=== PATIENT | female | born 1980 | race Caucasian/White ===

== ENCOUNTER 2017-09-17 10:35 | Day surgery (SDC) | payer BC ==
[2017-09-15 11:06] VITALS: BMI 27.3
[~2017-09-17 10:35] MED LIST: LACTATED RINGERS 1,000 ML IV SCH
[2017-09-17 11:00] VITALS: TEMP 97.8
[2017-09-17] MEDS ORDERED: LIDOCAINE 1% 20 ML VIAL (10MG/ML) FOR IV START INTRADERMA ONE (11:13)
[2017-09-17] MEDS ORDERED: MIDAZOLAM 2 MG/2 ML VIAL ONE (11:46)
[2017-09-17] MEDS ORDERED: fentaNYL (PF) 50 MCG/ML 2 ML AMP ONE (11:46)
[2017-09-17] MEDS ORDERED: GLYCOPYRROLATE 0.2 MG/ML 2 ML VIAL ONE (11:46)
[2017-09-17] MEDS ORDERED: PROPOFOL 10 MG/ML 20 ML VIAL IV ONE (11:46)
[2017-09-17] MEDS ORDERED: LIDOCAINE 1% INJ 10MG/ML (20 ML MDV) ONE (11:46)
--- NOTE | 2017-09-17 12:05 | P.PCN ---
Date of Procedure: 09/17/17 Procedure(s) Performed: Brief history: Patient is a pleasant 37-year-old white female, scheduled for an elective upper endoscopy as well as colonoscopy as a part of evaluation of long-standing history of GERD and intermittent rectal bleeding. Procedure performed: Esophagogastroduodenoscopy with biopsy Colonoscopy Preoperative diagnosis: Long standing history of GERD Intermittent rectal bleeding Anesthesia: MAC Procedure: After informed consent was obtained from the patient was brought into the endoscopy unit and IV sedation was administered by anesthesia under continuous monitoring. Initially upper endoscopy was done. The Olympus GF 160 video endoscope was inserted inserted into the mouth and esophagus intubated without any difficulty and was gradually advanced into the stomach and duodenum and carefully examined. The bulb and second part of the duodenum appeared normal. The scope was then withdrawn into the stomach adequately insufflated with air and upon careful examination the antrum had mild gastritis and biopsies were done from this area. The body, cardia and fundus appeared normal. The scope was then withdrawn into the esophagus. The GE junction was located at 40 cm to the incisors. It appeared regular with no erythema erosions or ulcerations. Rest of the esophagus appeared normal. Patient tolerated the procedure well. At this time the patient continued to remain sedation. Initial digital rectal examination was normal. Olympus CF 160 video colonoscope was then inserted into the rectum and gradually advanced to the cecum without any difficulty. Careful examination was performed as the scope was gradually being withdrawn. The prep was excellent. The cecum, ascending colon, transverse colon, descending colon, sigmoid colon and rectum appeared normal. Retroflexion was performed in the rectum and small internal hemorrhoids were noted. Patient tolerated the procedure well. Impression: 1. Upper endoscopy revealed mild antral gastritis but no evidence of esophagitis or peptic ulcer disease 2. Colonoscopy revealed normal-appearing colon from rectum to cecum with no evidence of colitis or colorectal neoplasia. Small internal hemorrhoids seen. Recommendations: Findings of this examination were discussed with the patient as well as her family. She was advised to follow with the biopsy results. She was advised to be a high-fiber diet and take fiber supplements on a regular basis and avoid straining and constipation.
[2017-09-17 12:30] VITALS: BP 113/78; PULSE 83; RESP 16
== END 2017-09-17 12:36 | disposition home or self-care (01) ==
LOC: ORWHC2ENDO 10:35
PROVIDERS: ATTEND Internal Medicine Gastroenterology
DX: K29.70 Gastritis, unspecified, without bleeding (principal); K64.8 Other hemorrhoids; F32.9 Major depressive disorder, single episode, unspecified; Z79.899 Other long term (current) drug therapy
CPT/HCPCS: 81025; 88305; 45378; 43239; J2250; J2001; J3010; J2704

== ENCOUNTER 2019-04-27 15:12 | Emergency (ER) | payer BC ==
[2019-04-27 15:21] VITALS: BP 135/90; PULSE 84; RESP 18; TEMP 97.8
--- NOTE | 2019-04-27 15:43 | ED ---
General Adult HPI - General Chief complaint: Head Injury Stated complaint: Hit head friday not feeling good Time Seen by Provider: 04/27/19 15:24 Source: patient, RN notes reviewed, old records reviewed Mode of arrival: ambulatory Limitations: no limitations - History of Present Illness Initial comments: 39-year-old female patient presents to ED for evaluation of head injury. Patient reports that Friday night she was out with friends, drinking, states that when she went to open the door of condo she slipped, fell backwards hitting her head on the ground. Denies loss of consciousness. Denies use of blood thinners. Patient reports in the day since she has had waxing and waning headaches, nausea. Initially presented to urgent care and they recommended she come here for a CAT scan. Patient states that she cannot be . Denies other complaints. Systemic: Pt denies fatigue, fever/chills, rash. Pt denies weakness, night sweats, weight loss. Neuro: Pt denies visual disturbances, syncope or pre-syncope. HEENT: Pt denies ocular discharge or irritation, otalgia, rhinorrhea, pharyngitis or notable lymphadenopathy. Cardiopulmonary: Pt denies chest pain, SOB, heart palpitations, dyspnea on exertion. Abdominal/GI: Pt denies abdominal pain, n/v/d. : Pt denies dysuria, burning w/ urination, frequency/urgency. Denies new onset urinary or bowel incontinence. MSK: Pt denies myalgia, loss of strength or function in extremities. Neuro: Pt denies new onset weakness, paresthesias. - Related Data Home Medications Medication Instructions Recorded Confirmed buPROPion HCL [Wellbutrin SR] 150 mg PO HS 09/15/17 09/15/17 Allergies Allergy/AdvReac Type Severity Reaction Status Date / Time No Known Allergies Allergy Verified 04/27/19 15:21 Review of Systems ROS Statement: Those systems with pertinent positive or pertinent negative responses have been documented in the HPI. ROS Other: All systems not noted in ROS Statement are negative. Past Medical History Past Medical History: No Reported History Additional Past Medical History / Comment(s): HAS BEEN HAVING EPISODES OF BLOOD IN STOOL AND SOME SOB History of Any Multi-Drug Resistant Organisms: None Reported Past Surgical History: No Surgical Hx Reported Past Anesthesia/Blood Transfusion Reactions: No Reported Reaction Past Psychological History: Depression Smoking Status: Never smoker Past Alcohol Use History: Occasional Past Drug Use History: None Reported - Past Family History Mother Family Medical History: No Reported History General Exam - General Exam Comments Initial Comments: Constitutional: NAD, AOX3, Pt has pleasant affect. HEENT: NC/AT, trachea midline, neck supple, no lymphadenopathy. Posterior pharynx non erythematous, without exudates. External ears appear normal, without discharge. Mucous membranes moist. Eyes PERRLA, EOM intact. There is no scleral icterus. No pallor noted. Cardiopulmonary: RRR, no murmurs, rubs or gallops, no JVD noted. Lungs CTAB in anterior and posterior powell. No peripheral edema. Abdominal exam: Abdomen soft and non-distended. Abdomen non-tender to palpation in all 4 quadrants. Bowel sounds active in LLQ. No hepatosplenomegaly. No ecchymosis Neuro: CN II-XII grossly intact. No nuchal rigidity. No raccon eyes, no bolton sign, no hemotympanum. No cervical spinal tenderness. MSK: No posterior calf tenderness bilaterally, homans sign negative bilaterally. Posterior tibialis and radial pulse +2 bilaterally. Sensation intact in upper and lower extremities. Full active ROM in upper and lower extremities, 5/5 stregnth. Limitations: no limitations Course Vital Signs 04/27/19 15:19 Temperature 97.8 F Pulse Rate 84 Respiratory 18 Rate Blood Pressure 135/90 O2 Sat by Pulse 100 Oximetry Medical Decision Making - Medical Decision Making 39-year-old female patient presents to ED for evaluation of head injury. Patient reports that Friday night she was out with friends, drinking, states that when she went to open the door of [employer] she slipped, fell backwards hitting her head on the ground. Denies loss of consciousness. Denies use of blood thinners. Patient reports in the day since she has had waxing and waning headaches, nausea. Initially presented to urgent care and they recommended she come here for a CAT scan. Patient states that she cannot be . Denies other complaints. Patient also in stable, nonfebrile. Physical exam did not acute pathology. Neurologic exam within normal limits. CT brain these findings were acute process. Patient diagnosed with concussion. Patient will discharge, follow-up with Dr. Phillips continued evaluation. Case discussed with Dr. Tavera. Disposition Clinical Impression: Concussion Disposition: HOME SELF-CARE Condition: Stable Instructions (If sedation given, give patient instructions): Concussion (ED) Additional Instructions: Patient to adhere to previously discussed treatment plan and will take med ication(s) as directed. Patient to follow up with PCP in 1-2 days. Patient to return to ED if symptoms do not improve. Follow up with primary care provider tomorrow. Return to ED if condition worse ns. Is patient prescribed a controlled substance at d/c from ED?: No Referrals: Tez Veloz DO [Primary Care Provider] - 1-2 days
--- NOTE | 2019-04-27 16:10 | CT ---
EXAMINATION TYPE: CT brain wendy connor DATE OF EXAM: 04/27/2019 COMPARISON: None HISTORY: Fall, LOC (Friday night) CT DLP: 1292.[address] Brain: Unenhanced CT of the brain was performed. The ventricles, basal cisterns and sulci overlying the cerebral convexities demonstrate a normal appe arance. There is no evidence for intracranial hemorrhage or sulcal effacement. No mass effects are seen. If symptoms persist consider MRI. Osseous calvarium is intact. IMPRESSION: No acute intracranial process CT Cervical Spine: Unenhanced CT of the cervical spine was performed with bone and soft tissue window settings submitted . Coronal and sagittal reconstruction is obtained. There is normal alignment and prevertebral soft tissues. I do not see evidence for fracture or sublu xation. No significant degenerative changes are present. The lung apices are clear. IMPRESSION: No evidence for acute fracture or subluxation of the cervical spine.
== END 2019-04-27 16:25 | disposition home or self-care (01) ==
LOC: EC 15:12
DX: S06.0X0A Concussion without loss of consciousness, initial encounter (principal); F32.9 Major depressive disorder, single episode, unspecified; Z79.899 Other long term (current) drug therapy; W01.0XXA Fall on same level from slipping, tripping and stumbling without subsequent striking against object, initial encounter; Y93.89 Activity, other specified
CPT/HCPCS: 70450; 72125; 99284

== ENCOUNTER → 2020-04-04 | Outpatient (CLI) | payer BC ==
--- NOTE | 2020-04-04 15:44 | XR ---
EXAMINATION TYPE: XR cervical spine comp DATE OF EXAM: 04/04/2020 TECHNIQUE: Frontal, lateral, oblique, swimmers, and open mouth view of the cervical spine are obtaine d. HISTORY: M54.2 neck pain. Posterior lump per patient. COMPARISON: CT cervical spine April 27, 2019 FINDINGS: The cervical spine is visualized in its entirety from C1 thru the top of T1 level, it is s table in alignment without evidence of acute fracture or dislocation. The pre-vertebral soft tissue appears within normal limits. The C1-C2 articulation is within normal limits on the open mouth view. Vertebral body heights and disc space heights are maintained. The oblique images are within normal limits. Overlying soft tissue is unremarkable. IMPRESSION: As above. No significant change from prior.
== END | disposition home or self-care (01) ==
LOC: RADXRMAIN 15:19
PROVIDERS: ATTEND Family Medicine
DX: M54.2 Cervicalgia (principal)
CPT/HCPCS: 72050

== ENCOUNTER → 2022-01-01 | Outpatient (CLI) | payer BC ==
--- NOTE | 2022-01-01 12:30 | XR ---
EXAMINATION TYPE: XR lumbar spine 3V, XR sacrum coccyx 3 views, XR AP view pelvis and 2 views each hip DATE OF EXAM: 01/01/2022 Comparison: 10/20/2014 Clinical History: 41-year-old female Lower Back Pain M54.50 Findings: Lumbar spine: Slight leftward truncal shift. 5 lumbar type vertebral bodies. Facet arthropathy lower lumbar spine. Mild degenerative disc space narrowing L5-S1. Vertebral body heights are preserved and alignment is m aintained. Sacrum coccyx: SI joints appear symmetric and intact. Smooth delineation to the arcuate lines of the sacrum. No disp laced or angulated sacral or coccygeal fracture seen. Pelvis and hips: A small bilateral os acetabuli are small degenerative labral ossification superior aspect of both patt tabula. Small anterior femoral head neck junction osseous excrescences on both sides. No acute fractu re, subluxation, or dislocation. IMPRESSION: 1. Lumbar spine: Some facet degenerative change in the lower lumbar spine along with mild degenerativ e disc disease at L5-S1. Some leftward truncal shift may be positional or due to muscle spasm. No giselle tebral compression collapse or malalignment. 2. Sacrum and coccyx: No angulated or displaced tailbone fracture seen. 3. Pelvis and hips: Small osseous excrescences anterior aspect of the femoral head neck junctions. Al so, either small os acetabuli or some degenerative labral ossification on both sides. Correlate for a ny chronic symptoms of femoral acetabular impingement syndrome. Consider outpatient orthopedic referr al if indicated.
== END | disposition home or self-care (01) ==
LOC: RADXRMAIN 11:49
PROVIDERS: ATTEND Family Medicine
DX: M51.37 Other intervertebral disc degeneration, lumbosacral region (principal)
CPT/HCPCS: 72100; 72220; 73521

== ENCOUNTER → 2022-06-28 | Outpatient (CLI) | payer BC ==
--- NOTE | 2022-06-29 04:41 | MR ---
EXAMINATION TYPE: MR lumbar spine wo con DATE OF EXAM: 06/28/2022 COMPARISON: None HISTORY: Low back pain that radiates down right leg. Multiplanar multiecho imaging of the lumbar spine performed without contrast. The lumbar vertebrae have normal alignment. There is mild decreased signal and narrowing at the L5-S1 disc. There is large posterior disc herniation into the spinal canal on the right side at L5-S1. The re is some lateral recess stenosis on the right side at L5-S1. The lumbar nerve roots appear fairly n ormal. No lumbar compression fracture. Posterior elements are intact. Sacroiliac joints are intact. IMPRESSION: Large posterior 14 x 8 mm right-sided L5-S1 lumbar disc herniation with impingement on the lateral re cess and correlates with the patient's symptoms of right leg pain.
== END | disposition home or self-care (01) ==
LOC: RADMRIMAIN 18:08
PROVIDERS: ATTEND Orthopaedic Surgery
DX: M51.17 Intervertebral disc disorders with radiculopathy, lumbosacral region (principal)
CPT/HCPCS: 72148

== ENCOUNTER 2022-07-23 10:46 | Emergency (ER) | payer BC ==
[2022-07-23 10:56] VITALS: BP 132/91; PULSE 105; RESP 17; TEMP 98
[2022-07-23] MEDS ORDERED: methylPREDNISolone SOD SUCCI 125 MG/2 ML VIAL IM ONE (11:36)
[2022-07-23] MEDS ORDERED: ACET/COD 300 MG/30 MG STARTER PACK 6 TAB BTL PO STA (11:36)
--- NOTE | 2022-07-23 11:37 | ED ---
Back Pain HPI - General Chief Complaint: Back Pain/Injury Stated Complaint: Sciatica Pain Time Seen by Provider: 07/23/22 11:05 Source: patient, RN notes reviewed Mode of arrival: ambulatory Limitations: no limitations - History of Present Illness Initial Comments: 42-year-old female presents emergency Department with chief complaint of low- back pain, right leg pain. Patient states she has known L5-S1 disc herniation scheduled for micro discectomy dr jonathan Lopez . Patient states last few days she said down and woke up with pain in her right leg gets worse with ambulation states her leg goes numb. Patient states she said no bowel, bladder incontinence or retention. Patient states that she called office in which they advised her to come emergency department. Patient states that symptoms have not worsened but are not improving. - Related Data Home Medications Medication Instructions Recorded Confirmed buPROPion HCL [Wellbutrin SR] 150 mg PO HS 09/15/17 04/27/19 Previous Rx's Medication Instructions Recorded Ibuprofen [Motrin] 600 mg PO Q8HR PRN #20 tab 07/23/22 predniSONE 50 mg PO DAILY #5 tab 07/23/22 Allergies Allergy/AdvReac Type Severity Reaction Status Date / Time No Known Allergies Allergy Verified 07/23/22 10:56 Review of Systems ROS Statement: Those systems with pertinent positive or pertinent negative responses have been documented in the HPI. ROS Other: All systems not noted in ROS Statement are negative. Past Medical History Past Medical History: No Reported History Additional Past Medical History / Comment(s): back pain History of Any Multi-Drug Resistant Organisms: None Reported Past Surgical History: No Surgical Hx Reported Past Anesthesia/Blood Transfusion Reactions: No Reported Reaction Past Psychological History: Depression Past Alcohol Use History: None Reported Past Drug Use History: None Reported - Past Family History Mother Family Medical History: No Reported History General Exam Limitations: no limitations General appearance: alert, in no apparent distress Head exam: Present: atraumatic, normocephalic, normal inspection Eye exam: Present: normal appearance, PERRL, EOMI. Absent: scleral icterus, conjunctival injection, periorbital swelling ENT exam: Present: normal exam, normal oropharynx, mucous membranes moist Neck exam: Present: normal inspection, full ROM. Absent: tenderness, meningismus, lymphadenopathy Respiratory exam: Present: normal lung sounds bilaterally. Absent: respiratory distress, wheezes, rales, rhonchi, stridor Cardiovascular Exam: Present: regular rate, normal rhythm, normal heart sounds. Absent: systolic murmur, diastolic murmur, rubs, gallop, clicks GI/Abdominal exam: Present: soft, normal bowel sounds. Absent: distended, tenderness, guarding, rebound, rigid Extremities exam: Present: other (Lower extremity strength equal bilaterally neurovascular intact equal warmth) Back exam: Present: full ROM, tenderness, paraspinal tenderness. Absent: vertebral tenderness Neurological exam: Present: alert, reflexes normal. Absent: motor sensory deficit Skin exam: Present: warm, dry, intact, normal color. Absent: rash Course Vital Signs 07/23/22 10:54 Temperature 98.0 F Pulse Rate 105 H Respiratory 17 Rate Blood Pressure 132/91 O2 Sat by Pulse 100 Oximetry Medical Decision Making - Medical Decision Making Patient had recent MRI does not require any further imaging. I did discuss case with Kimberly Angeles recommends steroids, pain control and follow-up. Return parameters were discussed. Disposition Clinical Impression: Lumbar radiculopathy, acute Disposition: HOME SELF-CARE Condition: Stable Instructions (If sedation given, give patient instructions): Lumbar Radiculopathy (ED), Lumbar Disc Herniation (ED) Additional Instructions: Please return to the Emergency Department if symptoms worsen or any other concerns. Prescriptions: Ibuprofen [Motrin] 600 mg PO Q8HR PRN #20 tab PRN Reason: Pain predniSONE 50 mg PO DAILY #5 tab Is patient prescribed a controlled substance at d/c from ED?: No Referrals: Tez Veloz DO [Primary Care Provider] - 1-2 days Vasiliy Mcneil DO [Doctor of Osteopathic Medicine] - 1-2 days Time of Disposition: 11:33
== END 2022-07-23 11:56 | disposition home or self-care (01) ==
LOC: EC 10:46
DX: M54.16 Radiculopathy, lumbar region (principal); F32.A Depression, unspecified
CPT/HCPCS: 99283; 96372; J2930

== ENCOUNTER → 2022-08-03 | Outpatient (CLI) | payer BC | END | disposition home or self-care (01) | LOC: LABPAT 11:01 | PROVIDERS: ATTEND Orthopaedic Surgery | DX: Z01.812 Encounter for preprocedural laboratory examination (principal); Z22.322 Carrier or suspected carrier of Methicillin resistant Staphylococcus aureus; M51.26 Other intervertebral disc displacement, lumbar region | CPT/HCPCS: 87070 ==

== ENCOUNTER 2022-08-09 06:22 | Day surgery (SDC) | payer BC ==
[~2022-08-09 06:22] MED LIST changes: +ACETAMINOPHEN TAB 500 MG TAB PO PRN; +GABAPENTIN 300 MG CAP PO PRN; -LACTATED RINGERS 1,000 ML IV SCH; +ONDANSETRON 4 MG/2 ML VIAL IVP PRN; +TRANEXAMIC ACID IN NACL,ISO-OS 1,000 MG in SALINE 1 100ML.BAG IVPB PRN
[2022-08-09] MEDS ORDERED: MIDAZOLAM 2 MG/2 ML VIAL IV PRN (06:36)
[2022-08-09] MEDS ORDERED: LACTATED RINGERS 1,000 ML IV SCH (06:36)
--- NOTE | 2022-08-09 06:56 | P.HPOR ---
History of Present Illness H&P Date: 08/09/22 .D:Date: 07/03/22 : 10:51am .T:Title: [facility] Date of :[birth year] Age: 42 year Height: 5'7" Weight: 165 lbs BP:125/78 BMI: 25.84 kg/m2 Occupation: R.N VAS: 8 CHIEF COMPLAINT: rechecklow back pain DOI: Chronic DOS: None Duration of current treatment regiment: >3 months HISTORY: Xrays No new xrays taken in office Trauma or injury No Work-Related No Pain description aching, burning, sharp. Location posterior Patient notes that their pain radiates to right lower extremity Activity Modification yes Hand Dominance right TREATMENTS COMPLETED: 6 weeks of PT completed? Month and Year of last PT date? No Physician directed home exercise completed? yes Patient has trialed the physician directed home exercise program for greater than 3 months without relief of their symptoms. Medications yes List: Ibuprofen, Oral steroids without relief Toradol 10mg without relief Flexeril 10mg without relief Gabapentin 300mg without relief Alternative interventions Chiropractic: yes, exacerbated symptoms. Massage therapy: yes No R.I.C.E: yes heat/ice without relief Brace: No Injections Yes right hip GTB through Dr. Houston How many? 1 Did they help? No RFA: No SUBJECTIVE: Ms. Shah returns to the office for a recheck of their low back pain and to review her MRI obtained after her last appointment. Patient reports no improvements to her symptoms since the time of the last appointment. The patient continues to complain of low back pain radiating into the right lower extremity that is significantly impacting her daily functionality. Furthermore the patient reports continued dermatomal deficits about the L5-S1 distribution hamzah tis imp acting her gait. Overall the patient has seen a progressive increase in symptoms since their onset. Ms. Shah symptoms are exacerbated with any standing, ambulation, or flexion/extension of the low back, due to this they notes that it is increasingly difficult for Ms. Shah to complete many of their daily tasks. Patient is having severe sleep disturbances as well due to their ongoing pain and associated symptoms. Regarding treatments, the patient has previously trialed all abovementioned treatment modalities without relief of her symptoms. Patient denies trialing any other modalities at this time. Otherwise the patient denies any f/c/sob/cp, no bladder or bowel retention/incontinence, no perineal numbness/tingling, and ambulates independently. HPI: Ms. Shah presents to the office for an evaluation of their low back pain. Patient reports a increasing, sharp, burning lumbar pain ongoing since 12/2021 with no known injury or trauma to indicate an exact onset of their symptoms. In addition to their lumbar pain, they do report that it radiates into the right lower extremity, associated with numbness and tingling through L5-S1 dermatomal distribution. Overall the patient has seen a progressive increase in symptoms since their onset. Ms. Shah symptoms are exacerbated with prolonged standing, ambulation, and high impact movements like walking up and down stairs, due to this they notes that it is increasingly difficult for Ms. Shah to complete many of their daily tasks. Patient is having severe sleep disturbances as well due to their ongoing pain and associated symptoms. Regarding treatments, the patient has previously trialed all abovementioned treatment modalities without relief. Otherwise the patient denies any f/c/sob/cp, no incision concerns, no bladder or bowel retention/incontinence, no perineal numbness/tingling, and ambulates independently. The patients' past social, medical, family, surgical history, as well as review of systems, have been reviewed. Please refer to the Neurosurgery History and Physical form that has been scanned in to our electronic medical record system. 14 points review of systems completed and as stated in HPI, all other systems reviewed are negative. Social History: Reviewed, see appropriate section of the chart for details. P3 Social History: Smoking: never a smoker P3 Alcohol: socially drinks alcohol P3 Family History: Reviewed, see appropriate section of the chart for details. P2 Past Medical History: Reviewed, see appropriate section of the chart for details. P1 Current Medications: Rx: ibuprofen 800 mg tablet Ref: 0 Rx: multivitamin Ref: 0 P1 PHYSICAL EXAMINATION: General: Awake, alert, appropriate for age, in no acute distress. HEENT: No unusual neck masses around region of lateral neck triangle, thyroid, supraclavicular groove Extremities: Skin warm and dry without acute lesions, coloration, temperature, skin intact, no tenderness or erythema Integument: Hairy patches: ABSENT Dorsal skin dimples: ABSENT Cafe au lait spots: ABSENT Surgical incisions: NONE Palpation: Please see Pain drawing on Intake sheet for further detail. Midline spinal tenderness: No E6 Cervical Tenderness: No E6 Paralumbar tenderness: No E6 Parathoracic tenderness: No E6 Buttocks tenderness: No E6 Sacroiliac Tenderness: No POSTURAL and MUSCULO-SKELETAL EVALUATION: Coronal Balance: NEUTRAL Recumbent testing: Patient is able to lay flat on back Sagittal Balance: NEUTRAL Shoulder Profile: LEVEL Pelvic Girdle: LEVEL Neck ROM: UNRESTRICTED Lumbar ROM: RESTRICTED Shoulder ROM: Symmetrical Hip ROM: Symmetrical Knee ROM: Symmetrical Hands: Normal appearance, symmetrical Feet: Normal appearance, Symmetrical VASCULAR STATUS : LEFT RIGHT Wrist Pulses INTACT INTACT Pedal Pulses (Dors. pedis & post.tibialis) INTACT INTACT Color NORMAL NORMAL Edema Absent Absent NEUROLOGIC EXAMINATION: Mental Status:Awake and alert, fully oriented, with normal attention, concentration and memory, and fluent, appropriate speech. Cranial Nerves: I: Olfactory not tested. II: Visual acuity normal, no visual field deficit noted with confrontation. III,IV: Normal pupillary reflexes & intact extraocular movements without nystagmus. V,: Intact symmetrical facial sensation. VII: Intact symmetrical facial motor movement VIII: Hearing intact. IX,X: Intact gag, swallow, & normal voice. XI: Sternocleidomastoid, trapezius function intact. XII: Tongue midline with normal movements. L'hermitte's Sign: Negative / absent Spurling'Sign: Absent bilaterally. Cubital percussion test: Absent bilaterally. Keys-Tinel sign - Carpal region: Absent bilaterally. Straight Leg Raising: positive right side Crossed straight leg raise: positive right side O8 MOTOR EXAM (0-5/5, N/T Muscle appearance: Symmetrical, without signs of atrophy or dystrophy UPPER EXTREMITY RIGHT LEFT Shoulder Abduction 5/5 5/5 Biceps 5/5 5/5 Triceps 5/5 5/5 Wrist Extension 5/5 5/5 Hand Intrinsics 5/5 5/5 Chief Telephone Operator 5/5 5/5 Hand and finger dexterity intact bilaterally? yes LOWER EXTREMITY RIGHT LEFT Hip Flexion 5/5 5/5 Knee Extension 5/5 5/5 Knee Flexion 5/5 5/5 Dorsiflexion 4-/5 5/5 Plantarflexion 4-/5 5/5 EHL 5/5 5/5 FHL 5/5 5/5 Toe heel walk / heel-toe walk intact while maintaining satisfactory balance? No Squatting/straightening w/o assistance to a min of 60 degree knee flexion? No Single leg stance: not intact right side REFLEXES(0-4/2, NT)Upper ExtremityLower Extremity Right 2 2 Left 2 2 Pathological Reflexes RIGHT LEFT Keys's Absent Absent Clonus Absent Absent Babinski Absent Absent Sensory system (0-4, N/T) Test type RU NERI RL LL Joint-Position 2 2 2 2 Vibration 2 2 2 2 Pain & LT sense 2 2 2 2 Dermatomal Deficit: None None L5-S1 None Gait and Functional Evaluation: Ambulatory aids: Independent Romberg's test: Intact bilaterally Unsteady Gait RADIOGRAPHIC STUDIES: XRay Lumbar Multiview (AP, Lateral, Flexion, Extension) with AP pelvis; 5 views taken at [facility] on 06/17/22 of Lumbar Spine and Pelvis: images are reviewed with the patient demonstrate disc height changes at L5-S1 with decreased disc height L5-S1 compared to the levels. There is no acute fracture dislocation lumbar lordosis is maintained pelvic incidence within normal limits. There is some facet arthrosis noted 045 L5-S1 there is moderate. No acute lesions noted. MRI without contrast from 06/28/2022 of the lumbar spine completed at [facility]: images reviewed the patient demonstrated L5-S1 disc desiccation with herniated nucleus pulposus causing moderate to severe central as well as right foraminal stenosis. There is S1 encroachment as it comes out causing displacement of the DRG in this region. They are somewhat boggy facets at L5-S1. There is right worse than left foraminal stenosis. There is by mouth reaction around the disc herniation. The remainder of the lumbar spine appears to be in normal condition with normal disc height hydration and no stenosis IMPRESSION: It was my pleasure to have seen and examined Luciana. I reviewed the patient's clinical syndrome, physical findings, and imaging studies during the appointment today. It is my impression that the patient has a diagnosis of. 1. L5-S1 herniated nucleus pulposus with right foraminal and paracentral stenosis 2.right lower extremity weakness 3.right lower extremity radiculopathy I outlined the natural course history without intervention and various interventional options. PLAN: Based on my findings I suggest the following course of action: - I discussed treatment options with the patient, including operative and non-operative options, and they have elected to proceed with the following surgical procedure: lumbar (L5-S1 right side) Microdiscectomy The indications, risks, benefits, and alternatives to surgery were discussed with the patient at length. Specifically (but not limited to) the risks of infection, stiffness, recurrence of symptoms, need for revision surgery, local numbness, neurovascular injury, and blood clots were discussed. The patient's questions were answered. The decision to proceed was made. Consent will be obtained for the procedure. Spine Surgery Risk Review Ms. Shah is presenting for evaluation of low back pain. It was my pleasure to have seen and examined Ms. Shah. In our visit today we have had a chance to go over subjective complaints, physical examination findings and treatments including the natural course history without intervention and various interventional options. The patients imaging demonstrates: XRay Lumbar Multiview (AP, Lateral, Flexion, Extension) with AP pelvis; 5 views taken at [facility] on 06/17/22 of Lumbar Spine and Pelvis: images are reviewed with the patient demonstrate disc height changes at L5-S1 with decreased disc height L5-S1 compared to the levels. There is no acute fracture dislocation lumbar lordosis is maintained pelvic incidence within normal limits. There is some facet arthrosis noted 045 L5-S1 there is moderate. No acute lesions noted. MRI without contrast from 06/28/2022 of the lumbar spine completed at [facility]: images reviewed the patient demonstrated L5-S1 disc desiccation with herniated nucleus pulposus causing moderate to severe central as well as right foraminal stenosis. There is S1 encroachment as it comes out causing displacement of the DRG in this region. They are somewhat boggy facets at L5-S1. There is right worse than left foraminal stenosis. There is by mouth reaction around the disc herniation. The remainder of the lumbar spine appears to be in normal condition with normal disc height hydration and no stenosis On physical exam, Ms. Shah demonstrates restricted lumbar ROM with difficulty in functional testing due to exacerbation of pain. Patient does also demonstrate right lower extremity weakness with L5-S1 dermatomal distribution deficit. She does have an unsteady gait due to her ongoing lower extremity symptoms. I have explained to the patient that as their condition progresses it will cause further neurological deficits and eventual paralysis. Based on the patients imaging, physical exam, and the rapid progression and disabling nature of their symptoms, at this time I recommend surgery in the form or a: lumbar (L5-S1 right side) Microdiscectomy . I discussed the risk and benefits of this procedure at length with Ms. Shah. The patient agreed to considered pursuing the procedure abovementioned. Prior to surgery, she should follow up with her PCP (Cardio, ID, IM etc) for clearance. Questions were invited and answered, and the patient wishes to proceed as outlined below. Currently, I am recommendin. lumbar (L5-S1 right side) Microdiscectomy 2.Follow up with PCP for surgical clearance 3.Review of surgical risks and benefits as well as an educational packet on the proposed surgical procedure. Risks: All surgical procedures come with inherent risks, including those related to positioning, anesthesia, intraoperative findings, and postoperative complications. It is important to understand that surgery does not come with any guarantee of a successful outcome as complications and adverse events are always possible. The patient was given a handout in office today discussing the surgical procedure and risks associated with the intervention, both of which were discussed with the patient. These risks include but are not limited to the following: * Experiencing same, different or even worse symptoms in back, neck, arms, or legs compared to before surgery. Requiring further surgery or other forms of treatment presently or at some time in the future at same or other levels of the intended spine surgery. On an extreme but fortunately relatively rare basis severe complication such as blindness, stroke, heart attack, temporary and/or permanent nerve injury, paralysis, coma, or may occur, sometimes without known explanation. Surgical complications may include but are not limited to risk of infection, fluid accumulation in the surgical dissection site, including a seroma or hematoma, that requires additional surgery, wound drainage, bleeding, new numbness or weakness, vision changes/loss, spinal fluid leakage, non-healing and/or infected incision, headaches, difficulty or inability to swallow, hoarseness, hemopneumothorax, pneumothorax, impotence, retrograde ejaculation, vaginal dryness; injury to nerves, spinal cord, blood vessels, lymphatics or other vital organs (i.e., bowel injury, injury to the great vessels); heterotopic bone formation; complications related to the hardware such as screws, rods, cages including misplaced hardware, device failure, instrumentation at the wrong spine level, hardware fracture/breakage, or hardware loosening; vertebral failure of the spinal column above or below the newly placed hardware; retained surgical instrumentations or devices and the need for further surgery. * Medical risks of the planned spine surgery include but are not limited to generalized Infections to the whole body or local areas outside of the surgical site (sepsis), heart attack, bleeding, anaphylaxis, meningitis, seizure, epilepsy, hearing loss, burn saleh, laceration of the head or other areas of the body, bruising, hypersensitivity of the skin, bladder over distension; allergic reaction; shoulder injury related to positioning; fat, blood and air clots to other areas of the body like heart, lungs, brain; failure of internal organs such as lungs, kidneys, liver and excessive bleeding. If blood transfusions are necessary, note that transfusions may cause intolerance reactions such as anaphylaxis or other complex reactions. Despite best efforts, the results of spine surgery might not heal in terms of bone, soft tissues such as skin, fascia, ligaments, and joints. Additionally, in order to achieve best possible results, spine surgery may be carried out beyond the initially planned levels and involve decompression, fusion including insertion of hardware at levels other than the original intended area of surgical interest change some portions of the procedure in order to ensure the best possible outcomes. With spine surgery and spinal fusion, there are different off label uses of instrumentation (devices, implants and hardware) as well as biological substances (bone morphogenic proteins, demineralized bone matrix) as well as using extra bone from allograft sources (i.e. cadaver bone) or autograft (iliac crest bone, ribs, or the spine itself). The patient has been given information about these practices and their inherent risks and benefits. [facility] is an educational center that serves as a training facility for neurosurgical and orthopedic HOME MANAGEMENT SUPERVISOR and Nursing students. Physician assistants are medically trained surgical providers who function in the outpatient, inpatient, and operating room setting under the direct supervision of the attending surgeon. [facility] has multiple operating rooms with single and overlapping rooms running daily. They currently function under the required guidelines as produced by the [facility] Finance Committee with regards to the overlapping rooms and will continue to comply with changes to this policy as they occur. The requirements include and are complied with as follows: (1) the critical portions of the overlapping rooms will not occur at the same time, (2) the attending physician will be physically present during the critical portions of the procedure and immediately available during the entire case, and (3) a back-up attending is designated should the primary attending not be immediately available. The patient has had a chance to review all the listed information, has been given print outs detailing this information, and has had all his/her questions answered to their satisfaction. It was my pleasure to have seen and examined Ms. Shah. In our visit today we have had a chance to go over my understanding of our patient's current condition, the natural course history without intervention and various interventional options. Questions were invited and answered, and the patient wishes to proceed as outlined above. I have seen and examined the patient for 25 minutes and we have spent more than 50% of the time in repeat and detailed counseling about the patient's condition, its natural course history with out and as much as can be predicted with surgery and re-review of various surgical treatment options. In conclusion, Ms. Shah requested we proceed with the above suggested surgery and are willing to accept risks and limitations of the suggested surgery as nature of the disease process and our best attempts at treatment for the condition. Thank you again for allowing us to be part of your patient's care. Please don't hesitate to contact me if you have any further questions. Signed and authenticated by: [employer] P:\\\\ppart\\\\[id number]\\\\[id number] \\[id number]\\\\[id number]\\\\[id number]\\\\[id number]\\\\[id number] \\\\[id number]\\\\[id number]\\\\[id number]\\\\[id number].PNG \\d Follow- up: 1 week pre-op Patient Education: (Informational booklet, instructions, etc) given at today's appointment: Yes .ED:Patient Education: Y Plan at next visit: review MRI and progress Medications Reviewed: YES In our visit today Ms. Shah and I have had a chance to go over my understanding of the patient's current condition, the natural course history without intervention and various interventional options. Questions were invited and answered, and the patient wishes to proceed as outlined above. I will be sure to keep you updated afterMs. Shah returns here for further follow-up. Thank you again for your referral. Please do not hesitate to contact me if you have any further questions. Signed and authenticated by: Vasiliy Jaimes [facility] [address] [place] [address] This message is confidential, intended only for the named recipient(s) and may contain information that is privileged or exempt from disclosure under applicable law. If you are not the intended recipient(s), you are notified that the dissemination, distribution or copying of this information is strictly prohibited. If you received this message in error, please notify the sender then delete this message. Patient verbalizes understanding of the information discussed. The above note was initiated by Vasiliy Dumont, physician recording audiology assistant for Dr. Vasiliy Mcneil. This note has been reviewed by Dr. Mcneil, who has made his personal changes and impressions for this document. CC: Tez Veloz D.O. # SIGNED BY Vasiliy Mcneil (GOO)07/08/2022 08:28AM Past Medical History Past Medical History: Musculoskeletal Disorder Additional Past Medical History / Comment(s): back pain, herniated disc, sciatic pain down right leg History of Any Multi-Drug Resistant Organisms: None Reported Past Surgical History: No Surgical Hx Reported Additional Past Surgical History / Comment(s): colonoscopy Past Anesthesia/Blood Transfusion Reactions: No Reported Reaction Smoking Status: Never smoker - Past Family History Mother Family Medical History: No Reported History Medications and Allergies Home Medications Medication Instructions Recorded Confirmed Type Calcium Carbonate/Vitamin D3 1 each PO DAILY 08/06/22 08/06/22 History [Calcium 600 mg-D3 10 Mcg (400 Iu)] Gabapentin [Neurontin] 300 mg PO TID 08/06/22 08/09/22 History Ibuprofen [Motrin Ib] 200 - 400 mg PO Q6H PRN 08/06/22 08/06/22 History Multivitamins, Thera [Multivitamin 1 tab PO DAILY 08/06/22 08/06/22 History (formulary)] Allergies Allergy/AdvReac Type Severity Reaction Status Date / Time No Known Allergies Allergy Verified 08/09/22 06:45 Physical Examination Osteopathic Statement: *. No significant issues noted on an osteopathic structural exam other than those noted in the History and Physical/Consult.
[2022-08-09] MEDS ORDERED: SCOPOLAMINE 1 MG/72 HR PATCH TRANSDERM ONE (07:12)
[2022-08-09] MEDS ORDERED: ROCURONIUM 10 MG/ML (5 ML VIAL) IV ONE (07:22)
[2022-08-09] MEDS ORDERED: PROPOFOL 10 MG/ML 20 ML VIAL IV ONE (07:22)
[2022-08-09] MEDS ORDERED: GLYCOPYRROLATE 0.2 MG/ML 2 ML VIAL ONE (07:22)
[2022-08-09] MEDS ORDERED: LIDOCAINE 2% INJ 20 MG/ML (2 ML VIAL) ONE (07:22)
[2022-08-09] MEDS ORDERED: NEOSTIGMINE 1 MG/ML 10 ML VIAL ONE (07:22)
[2022-08-09] MEDS ORDERED: MIDAZOLAM 2 MG/2 ML VIAL ONE (07:22)
[2022-08-09] MEDS ORDERED: SUCCINYLCHOLINE CHLORIDE 200 MG/10 ML VIAL IV ONE (07:22)
[2022-08-09] MEDS ORDERED: fentaNYL (PF) 50 MCG/ML 2 ML AMP ONE (07:22)
[2022-08-09] MEDS ORDERED: KETAMINE 10 MG/ML 20 ML VIAL ONE (07:22)
[2022-08-09] MEDS ORDERED: TRANEXAMIC ACID IN NACL,ISO-OS 1,000 MG/100 ML BAG ONE (07:22)
[2022-08-09] MEDS ORDERED: BUPIVACAIN-EPI 0.25%-1:200,000 30 ML VIAL SQ ONE (07:28)
[2022-08-09] MEDS ORDERED: GELATIN SPONGE,ABSORB (LARGE) 1 EACH SPONGE TOPICAL ONE (07:28)
[2022-08-09] MEDS ORDERED: THROMBIN (BOVINE) 5,000 UNIT VIAL TOPICAL ONE (07:28)
[2022-08-09] MEDS ORDERED: ceFAZolin 3,000 MG in SODIUM CHLORIDE 0.9% IRRIGATIO 3,000 ML IRRIGATION ONE (08:22)
--- NOTE | 2022-08-09 09:05 | XR ---
Intraoperative/procedural fluoroscopic services were provided for L5-S1 microdiscectomy. Total fluoro scopy time is 5 seconds with a total of 4 submitted images to PACS. Please see the operative note for further details.
[2022-08-09] MEDS ORDERED: SENNOSIDES-DOCUSATE SODIUM 1 EACH TAB PO PRN (09:12)
[2022-08-09] MEDS ORDERED: HYDROcodone/APAP 5-325MG 1 EACH TAB PO PRN (09:12)
[2022-08-09] MEDS ORDERED: HYDROmorphone 1 MG/ML 1 ML SYRINGE IVP PRN (09:12)
[2022-08-09] MEDS ORDERED: HYDROmorphone 0.5 MG/0.5 ML SYRINGE IVP PRN (09:12)
[2022-08-09] MEDS ORDERED: HYDROcodone/APAP 10-325MG 1 EACH TAB PO PRN (09:12)
[2022-08-09] MEDS ORDERED: CYCLOBENZAPRINE 5 MG TAB PO PRN (09:12)
[2022-08-09 09:17] VITALS: TEMP 96.8
[2022-08-09] MEDS: HYDROmorphone 0.5 MG/0.5 ML SYRINGE IVP PRN ×3 (09:20→09:39)
[2022-08-09 09:35] VITALS: RESP 16
[2022-08-09 11:18] VITALS: BP 124/84; PULSE 72
[2022-08-09] MEDS ORDERED: ACETAMINOPHEN TAB 325 MG TAB PO SCH (12:00)
--- NOTE | 2022-08-09 13:48 | P.OP ---
Date of Procedure: 08/09/22 Preoperative Diagnosis: 1. L5-S1 HNP 2. RLE radiculopathy 3. RLE weakness 4. Low back pain Postoperative Diagnosis: 1. L5-S1 HNP 2. RLE radiculopathy 3. RLE weakness 4. Low back pain Procedure(s) Performed: 1. L5-S1 hemilaminotomy, partial medial facetectomy and foraminotomy with microdiscectomy (96756) Use of microscope Implants: None Anesthesia: GETA Surgeon: Vasiliy Mcneil Racket Stringer #1: Souleymane Karimi (was present and assisted in all aspect of the case from positioning to dressing placement) Estimated Blood Loss (ml): 25 IV fluids (ml): 500 Urine output (ml): 0 Pathology: none sent Condition: stable Disposition: PACU Indications for Procedure: Ms. Shah is presenting for evaluation of low back pain. It was my pleasure to have seen and examined Ms. Shah. In our visit today we have had a chance to go over subjective complaints, physical examination findings and treatments including the natural course history without intervention and various interventional options. The patients imaging demonstrates: XRay Lumbar Multiview (AP, Lateral, Flexion, Extension) with AP pelvis; 5 views taken at [facility] on 06/17/22 of Lumbar Spine and Pelvis: images are reviewed with the patient demonstrate disc height changes at L5-S1 with decreased disc height L5-S1 compared to the levels. There is no acute fracture dislocation lumbar lordosis is maintained pelvic incidence within normal limits. There is some facet arthrosis noted 045 L5-S1 there is moderate. No acute lesions noted. MRI without contrast from 06/28/2022 of the lumbar spine completed at [facility]: images reviewed the patient demonstrated L5-S1 disc desiccation with herniated nucleus pulposus causing moderate to severe central as well as right foraminal stenosis. There is S1 encroachment as it comes out causing displacement of the DRG in this region. They are somewhat boggy facets at L5-S1. There is right worse than left foraminal stenosis. There is by mouth reaction around the disc herniation. The remainder of the lumbar spine appears to be in normal condition with normal disc height hydration and no stenosis On physical exam, Ms. Shah demonstrates restricted lumbar ROM with difficulty in functional testing due to exacerbation of pain. Patient does also demonstrate right lower extremity weakness with L5-S1 dermatomal distribution deficit. She does have an unsteady gait due to her ongoing lower extremity symptoms. I have explained to the patient that as their condition progresses it will cause further neurological deficits and eventual paralysis. Based on the patients imaging, physical exam, and the rapid progression and disabling nature of their symptoms, at this time I recommend surgery in the form or a: lumbar (L5-S1 right side) Microdiscectomy . I discussed the risk and benefits of this procedure at length with Ms. Shah. The patient agreed to considered pursuing the procedure abovementioned. Prior to surgery, she should follow up with her PCP (Cardio, ID, IM etc) for clearance. Questions were invited and answered, and the patient wishes to proceed as outlined below. Currently, I am recommendin. lumbar (L5-S1 right side) Microdiscectomy Description of Procedure: The patient was seen and examined in the preoperative area. All preoperative protocols were followed. Informed consent was obtained, risks and benefits of the procedure were discussed at length. Risks including bleeding infection damage to the surrounding tissue and risk of re-operation were discussed with the patient. Risk of anesthesia up to and including was discussed with the patient. These are outlined in the risk review. They were willing to accept these risks and all the risks of surgery. The patient was given a weight-based dose of antibiotics in the form of 2 g Ancef. The patient was seen and evaluated by the anesthesia team who deemed them fit for surgery. The site was marked, the patient was willing to proceed with the procedure. The patient was transferred to the operative suite by the Department of anesthesia. They were then drifted off to sleep by the department anesthesia and GETA was performed. The patient tolerated this well. Saenz catheter was placed by nursing staff, a-traumatically. Once confirmation of lines and ventilation the patient was transferred to a prone Jas table very carefully. All bony prominences including wrists, elbows, axilla, chest, hips, and thighs, and feet were padded very well. Special attention was paid to the genitalia, and these were padded accordingly. SCDs were placed on bilateral lower extremities and were connected. Arms were well padded and placed on arm boards up and out in the 90/90 position. Once in position, again we confirmed good ventilation capabilities and that lines were running appropriately. The patients Lumbar spine was then exposed. 1010s were placed outlining the in cision site. Standard alcohol was used to clean the incision site and allowed to dry. C-arm was used to needle localize the pedicles at L5-S1 and bio-grisel the patient and confirm level for incision which was marked with a skin marker. Operative briefing was performed with all teams and everyone in agreement to proceed. The patient was then prepped and draped in a normal sterile fashion. Timeout was then performed, and all parties agreed with the procedure to be performed. Skin incision was made over the previously marked area and dissection taken down to the deep facia which was split just off midline for a midline sparing approach. Subperiosteal dissection was then taken down the lamina over the facet joints and identifying the pars at L5. Garnett 4 was placed at the level of the pars of L5 and a lateral image taken to confirm operative level. Retractors were then placed. Microscope was then brought in for visualization. Edward-laminotomy, partial medial facetectomy and foraminotomy were performed at L5-S1 using high speed eva and Kerrison rongure. The ligamentum flavum was removed with Kerrison and curette. Dura and roots protected. The disc space was identified along with the herniation. 11 blade was used to make small annulotomy and micro-pituitary used to remove loose disc fragments. Once fragments were removed, down biting curette was used to push any medial fragments down and towards the annulotomy and decompress centrally. The disc space was irrigated, and any loose fragments removed again. Bipolar was used for hemostasis and scarring of the annulotomy. The area was irrigated, and meticulous hemostasis performed. The bed was inspected, and all roots have ample room and are decompressed along with the dura. There were no injuries. Retractors were then removed. The wound was copiously irrigated with NSS. The deep fascia was closed with 0 PDS. Deep sub-q with 0 Vicryl and superficial with 2-0 Vicryl. Subcuticular was closed with 3-0 stratafix. The wound edges approximated well. The wound was then cleaned, and glue tape placed on the skin and allowed to dry. It was then Covered with an Opifoam dressing. The patient was then transferred off the table back to their hospital bed a- traumatically. They were extubated by the department of anesthesia. They were then transferred to PACU in stable condition having tolerated the procedure with no complications.
[2022-08-09] MEDS ORDERED: GABAPENTIN 300 MG CAP PO SCH (16:00)
== END 2022-08-09 11:18 | disposition home or self-care (01) ==
LOC: OR 06:22
PROVIDERS: ATTEND Orthopaedic Surgery
DX: M51.17 Intervertebral disc disorders with radiculopathy, lumbosacral region (principal); M48.061 Spinal stenosis, lumbar region without neurogenic claudication; M47.27 Other spondylosis with radiculopathy, lumbosacral region; F10.20 Alcohol dependence, uncomplicated; Z79.1 Long term (current) use of non-steroidal anti-inflammatories (NSAID); Z79.891 Long term (current) use of opiate analgesic; Z79.899 Other long term (current) drug therapy; Z98.890 Other specified postprocedural states
CPT/HCPCS: 81025; 86900; 86901; 86850; 72100; 63030; C1762; J2250; J0330; J2710; J0690 ×2; J2405; J3010; J2704; J1170; J2001

== ENCOUNTER → 2023-07-12 | Outpatient (CLI) | payer BC ==
--- NOTE | 2023-07-12 08:52 | CT ---
EXAMINATION TYPE: CT lumbar spine wo con CT DLP: 599.1 mGycm, Automated exposure control for dose reduction was used. DATE OF EXAM: 07/12/2023 8:37 AM COMPARISON: Radiograph 08/09/2022. MRI 06/28/2022. CLINICAL INDICATION:Female, 43 years old with history of M54.50 LOW BACK PAIN; PHH, lower back pain TECHNIQUE: Multiple axial images were obtained from the midportion of T11 through the sacroiliac jeannette nts. Soft tissue and bone windows in coronal and sagittal planes were obtained and reviewed. 3-D ref ormats of the bones were created on a separate workstation and submitted for review. Contrast used: mL of , none. Oral contrast used: none. FINDINGS: Alignment: There are 5 lumbar type vertebral bodies within normal alignment. Bone: No evidence of fracture is identified. Mild degeneration with osteophyte formation and facet a rthropathy. Discs: T12-L1: No spinal canal or neural foraminal stenosis is identified. L1-L2: No spinal canal or neural foraminal stenosis is identified. L2-L3: No spinal canal or neural foraminal stenosis is identified. L3-L4: No spinal canal or neural foraminal stenosis is identified. L4-L5: No spinal canal or neural foraminal stenosis is identified. L5-S1: No spinal canal or neural foraminal stenosis is identified. Other: None IMPRESSION: 1. No evidence for spinal fracture. 2. Mild degeneration changes of the spine.
== END | disposition home or self-care (01) ==
LOC: RADCTMAIN 08:18
PROVIDERS: ATTEND Orthopaedic Surgery
DX: M51.36 Other intervertebral disc degeneration, lumbar region (principal)
CPT/HCPCS: 72131